=== PATIENT | female | born 1990 | race Caucasian/White ===

== ENCOUNTER → 2016-08-07 | Outpatient (REF) | payer OTHER ==
[~2016-08-07] MED LIST: ACET50TA PO; B2100TAB PO; IBUP60TA PO; IBUP80TA PO; MAGN500C PO; OXYC2.5T PO; OXYC5CAP2 PO; PRENTAB66 PO
== END | disposition home or self-care (01) ==
LOC: M LAB REF 15:04
PROVIDERS: ATTEND Physician Assistant
DX: N39.0 Urinary tract infection, site not specified (principal)

== ENCOUNTER → 2016-11-28 | Outpatient (REF) | payer OTHER ==
[2016-11-28 13:55] LABS: CORTISOL AM 27.5 UG/DL (4.3-22.4); PROGESTERONE 0.3 NG/ML
[2016-11-28 13:56] LABS: FOLLICLE STIMULATING HORMONE 5.6 mIU/mL
[2016-11-28 14:06] LABS: ALBUMIN 3.6 GM/DL (3.2-5.2); ALKALINE PHOSPHATASE 50 U/L (45-117); ALT/SGPT 17 U/L (12-78); ANION GAP 7 MEQ/L (8-16); AST/SGOT 21 U/L (15-37); BILIRUBIN,TOTAL 0.4 MG/DL (0.2-1.0); BLOOD UREA NITROGEN 13 MG/DL (7-18); CALCIUM LEVEL 8.5 MG/DL (8.5-10.1); CARBON DIOXIDE LEVEL 24 MEQ/L (21-32); CHLORIDE LEVEL 107 MEQ/L (98-107); CREATININE FOR GFR 0.83 MG/DL (0.55-1.02); FREE T4 1.11 NG/DL (0.76-1.46); GLOMERULAR FILTRATION RATE > 60.0 (>60); GLUCOSE, FASTING 79 MG/DL (70-105); SODIUM LEVEL 138 MEQ/L (136-145); TOTAL PROTEIN 7.2 GM/DL (6.4-8.2)
[2016-12-02 00:06] LABS: ESTRONE SERUM 196 pg/mL (.)
== END ==
LOC: M LAB REF 12:53
PROVIDERS: ATTEND Obstetrics & Gynecology
DX: N95.9 Unspecified menopausal and perimenopausal disorder (principal)

== ENCOUNTER → 2017-12-04 | Outpatient (REF) | payer OTHER | LOC: M LAB REF 13:07 | DX: Z01.419 Encounter for gynecological examination (general) (routine) without abnormal findings (principal) ==

== ENCOUNTER → 2018-12-26 | Outpatient (REF) | payer OTHER ==
[~2018-12-26] MED LIST changes: -ACET50TA PO; +IBUP600T42 PO; -IBUP60TA PO; +MAPA500T2 PO
== END ==
LOC: M LAB REF 09:33
PROVIDERS: ATTEND Physician Assistant
DX: N39.0 Urinary tract infection, site not specified (principal)

== ENCOUNTER → 2019-09-07 | Outpatient (CLI) | payer OTHER ==
[2019-09-07 15:40] LABS: CHLAMYDIA DNA AMPLIFICATION NEGATIVE (NEGATIVE); GC DNA AMPLIFICATION NEGATIVE (NEGATIVE)
[2019-09-08 14:43] LABS: HIV 1&2 SCREEN CENTAUR NEGATIVE (NEGATIVE)
[2019-09-09 10:30] LABS: HEPATITIS C VIRUS ABY INDEX 0.1 INDEX (<0.8)
== END ==
LOC: M WUC 11:08
PROVIDERS: ATTEND Advanced Practice Midwife
DX: Z11.3 Encounter for screening for infections with a predominantly sexual mode of transmission (principal)

== ENCOUNTER → 2020-05-27 | Outpatient (CLI) | payer OTHER ==
[~2020-05-27] MED LIST changes: +IBUP-1114 PO; +PAME25CA PO; +ZOLO100T PO
== END ==
LOC: M LABSMTC 09:14
PROVIDERS: ATTEND Anesthesiology
DX: Z11.59 Encounter for screening for other viral diseases (principal)

== ENCOUNTER 2020-06-01 07:19 | Day surgery (SDC) | payer OTHER ==
[~2020-06-01] VITALS: Ht 162.6 cm; Wt 65.8 kg
[~2020-06-01 07:19] MED LIST changes: +LR 1,000 ML IV ONE
[2020-06-01 08:06] LABS: HEMATOCRIT 39.1 % (36.0-47.0); HEMOGLOBIN 12.8 g/dl (12.0-15.5); MEAN CORPUSCULAR HEMOGLOBIN 30.8 pg (27.0-33.0); MEAN CORPUSCULAR HGB CONC 32.7 g/dl (32.0-36.5); PLATELET COUNT, AUTOMATED 286 10^3/uL (150-450); RED BLOOD COUNT 4.16 10^6/uL (4.00-5.40); WHITE BLOOD COUNT 4.1 10^3/uL (4.0-10.0)
[2020-06-01] MEDS ORDERED: SCOPOLAMINE 1MG TRANSDERMAL PATCH As Ordered ONE (08:12)
[2020-06-01] MEDS ORDERED: SCOPOLAMINE 1MG TRANSDERMAL PATCH TOP ONE (08:45)
[2020-06-01] MEDS ORDERED: MIDAZOLAM INJ 2MG/2ML VIAL (J2250 PER 1MG) As Ordered ONE (09:05)
[2020-06-01] MEDS ORDERED: propofoL 200 MG/20 ML VIAL As Ordered ONE (09:05)
[2020-06-01] MEDS ORDERED: fentaNYL 100 MCG/2 ML INJECTION (J3010) As Ordered ONE ×2 (09:05→09:06)
[2020-06-01] MEDS ORDERED: SUGAMMADEX SODIUM 500 MG/5 ML VIAL (BRIDION) As Ordered ONE (09:05)
[2020-06-01] MEDS ORDERED: LIDOCAINE 2% 100MG/5ML SDV (FOR ANES.) As Ordered ONE (09:05)
[2020-06-01] MEDS ORDERED: dexameTHASONE 4 MG/ML 1ML VIAL (J1100 PER 1MG) As Ordered ONE (09:05)
[2020-06-01] MEDS ORDERED: KETOROLAC 60MG 2ML VIAL As Ordered ONE (09:05)
[2020-06-01] MEDS ORDERED: METOCLOPRAMIDE INJ 10MG/2ML VIAL (J2765 PER 1) As Ordered ONE (09:05)
[2020-06-01] MEDS ORDERED: ROCURONIUM BROMIDE 50 MG/5 ML VIAL As Ordered ONE (09:05)
[2020-06-01] MEDS ORDERED: ONDANSETRON 4MG/2ML VIAL As Ordered ONE (09:05)
[2020-06-01] MEDS ORDERED: ACETAMINOPHEN 1000MG 100ML IV BTL (OFIRMEV) (J0131 PER 10MG) As Ordered ONE (09:08)
[2020-06-01] MEDS ORDERED: LIDOCAINE W/EPINEPHRINE 1% 20ML VIAL As Ordered ONE (09:11)
--- NOTE | 2020-06-01 10:07 | RO ---
OPERATIVE NOTE DATE OF OPERATION: 06/01/2020 INDICATIONS: Jada is a 29-year-old female, multiparity, who denies permanent tubal sterilization. After consulting at the office, the decision was made to proceed with a laparoscopic bilateral tubal ligation in the form of removal of both tubes. PREOPERATIVE DIAGNOSIS: Multiparity, desires permanent tubal sterilization. POSTOPERATIVE DIAGNOSIS: Multiparity, desires permanent tubal sterilization. PROCEDURE: Laparoscopic bilateral salpingectomies. ANESTHESIA: General. SURGEON: Dr. Vickers. COMPLICATIONS: None. ESTIMATED BLOOD LOSS: Less than 20 mL. FINDINGS: Normal uterus, tubes, and ovaries. SPECIMEN SENT TO THE LAB: Bilateral tubes. DESCRIPTION OF PROCEDURE: After obtaining informed consent, patient was taken to the operating room where general anesthetic was found to be adequate. She was then draped and prepped in the usual sterile fashion in the dorsal lithotomy position. At this point, a straight cath of the bladder was performed for approximately 120 mL of clear urine. We then placed a uterine manipulator. Attention was then turned to the abdomen where a 5 mm infraumbilical incision was made. Using the Veress needle, the abdomen was insufflated with CO2 gas to approximately 3.5 liters. We then placed a 5 mm XCEL trocar under direct visualization with the laparoscope, and an 8 mm right lateral port was placed. Patient was placed in steep Trendelenburg. Bilateral fallopian tubes identified. The fimbriated ends were cauterized using the Stanley harmonic scalpel all the way up to the cornual area of the tube, and the tube was then removed and sent to pathology. The opposite side done in similar fashion. Pelvis copiously irrigated with normal saline and suctioned out. Good hemostasis noted. All instruments removed. The laparoscopic ports were closed using 3-0 Vicryl in subcuticular fashion and the skin with Dermabond. 0.25% Marcaine was placed for postoperative pain. Patient tolerated the procedure well. She was then transferred to the recovery room in stable condition. cc: [facility]
[2020-06-01] MEDS ORDERED: oxyCODONE 5MG TAB As Ordered ONE (10:08)
[2020-06-01] MEDS ORDERED: ONDANSETRON 4MG/2ML VIAL IV PRN (10:15)
[2020-06-01] MEDS ORDERED: LR 1,000 ML IV SCH (10:15)
[2020-06-01] MEDS ORDERED: HYDROMORPHONE HCL 0.5 MG/ 0.5 ML SYRINGE (J1170 PER 1) IV PRN (10:15)
[2020-06-01] MEDS ORDERED: fentaNYL 100 MCG/2 ML INJECTION (J3010) IV PRN (10:15)
[2020-06-01] MEDS: oxyCODONE 5MG TAB PO PRN ×2 (10:18→10:46)
[2020-06-01] MEDS ORDERED: PERCOCET 5MG/325MG TAB PO PRN (10:30)
[2020-06-01 11:00] VITALS: BP 128/70
[2020-06-01] MEDS ORDERED: IBUPROFEN 800 MG PO SCH (16:00)
[2049-06-08] MEDS ORDERED: LIDOCAINE 1% MDV 20ML VIAL SQ PRN (06:00)
== END 2020-06-01 11:42 | disposition home or self-care (01) ==
LOC: M SDC 07:19
PROVIDERS: ATTEND Obstetrics & Gynecology
DX: Z30.2 Encounter for sterilization (principal); F41.9 Anxiety disorder, unspecified; G43.909 Migraine, unspecified, not intractable, without status migrainosus; Z79.899 Other long term (current) drug therapy
CPT/HCPCS: 36415; 58661; 81025; 85027; 86850; 86900; 86901; 88302; J0131; J1100; J1885; J2250; J2405; J2765; J3010

== ENCOUNTER → 2022-05-13 | Outpatient (REF) | payer OTHER ==
[~2022-05-13] MED LIST changes: -LR 1,000 ML IV ONE
[2022-05-13 16:59] LABS: HEMATOCRIT 43.1 % (36.0-47.0); HEMOGLOBIN 14.4 g/dl (12.0-15.5); MEAN CORPUSCULAR HEMOGLOBIN 31.2 pg (27.0-33.0); MEAN CORPUSCULAR HGB CONC 33.4 g/dl (32.0-36.5); MEAN CORPUSCULAR VOLUME 93.5 fl (80.0-96.0); PLATELET COUNT, AUTOMATED 278 10^3/uL (150-450); RED BLOOD COUNT 4.61 10^6/uL (4.00-5.40)
== END ==
LOC: M WUC 12:04
PROVIDERS: ATTEND Internal Medicine
DX: F90.2 Attention-deficit hyperactivity disorder, combined type (principal)

== ENCOUNTER → 2025-04-03 | Outpatient (CLI) | payer OTHER | LOC: M RAD 09:14 | PROVIDERS: ATTEND Internal Medicine | DX: D37.6 Neoplasm of uncertain behavior of liver, gallbladder and bile ducts (principal) ==

== ENCOUNTER → 2025-06-12 | Outpatient (CLI) | payer OTHER ==
[~2025-06-12] MED LIST changes: +ISOVUE-370 76% 100 ML VIAL As Ordered ONE
== END ==
LOC: M RAD 08:02
PROVIDERS: ATTEND Internal Medicine Cardiovascular Disease
DX: I47.11 Inappropriate sinus tachycardia, so stated (principal)